=== PATIENT | female | born 1990 ===

== ENCOUNTER 2018-07-11 09:39 | Emergency (ER) | payer BC ==
[2018-07-11 09:51] VITALS: BP 112/77; PULSE 77; RESP 16; TEMP 98.2; O2SAT 99
--- NOTE | 2018-07-11 10:42 | ED PDOC ---
Arrival/HPI - General Historian: Patient - History of Present Illness Narrative History of Present Illness (Text): 07/11/18 10:43 28-year-old female presents today with a 2-week history of swelling to the left wrist. Patient denies any recent trauma or injury. Patient states she is noticed a small lump along the dorsal aspect of the left wrist. Patient states at times there is slight tenderness but the majority of the time she has no pain. She denies numbness weakness or tingling in the extremity. Denies decreased range of motion of the hand or wrist. No medications have been taken at home. Patient is refusing any medications at present time as she states she has no pain. <Mary Kay Choe - Last Filed: 07/11/18 19:39> <Moshe Garcia - Last Filed: 07/16/18 11:40> - General Chief Complaint: Finger,Hand,&Wrist Time Seen by Provider: 07/11/18 09:42 Past Medical History - Provider Review Nursing Documentation Reviewed: Yes - Travel History Have you recently traveled outside [place] w/in the past 3 mons?: No - Psychiatric Hx Psychophysiologic Disorder: No Hx Substance Use: No - Surgical History Hx Section: Yes <Mary Kay Choe - Last Filed: 07/11/18 19:39> Family/Social History - Physician Review Nursing Documentation Reviewed: Yes Family/Social History: Unknown Family HX Smoking Status: Never Smoked Hx Alcohol Use: No Hx Substance Use: No <Mary Kay Choe - Last Filed: 07/11/18 19:39> Allergies/Home Meds <Mary Kay Choe - Last Filed: 07/11/18 19:39> <Moshe Garcia - Last Filed: 07/16/18 11:40> Allergies/Adverse Reactions: Allergies No Known Allergies Allergy (Verified 07/12/18 09:22) Home Medications: Home Meds Medication Instructions Recorded Confirmed No Known Home Med 07/11/18 07/11/18 Review of Systems - Review of Systems Constitutional: absent: Fatigue, Fevers Respiratory: absent: SOB, Cough Cardiovascular: absent: Chest Pain, Palpitations Gastrointestinal: absent: Abdominal Pain, Nausea, Vomiting Genitourinary Female: absent: Dysuria Musculoskeletal: Arthralgias. absent: Back Pain, Neck Pain Skin: Other (cyst) Neurological: absent: Headache Psychiatric: absent: Anxiety, Depression <Mary Kay Choe - Last Filed: 07/11/18 19:39> Physical Exam Vital Signs Reviewed: Yes Vital Signs Temp Pulse Resp BP Pulse Ox 07/11/18 09:48 98.2 F 77 16 112/77 99 Temperature: Afebrile Blood Pressure: Normal Pulse: Regular Respiratory Rate: Normal Appearance: Positive for: Well-Appearing, Non-Toxic, Comfortable Pain Distress: None Mental Status: Positive for: Alert and Oriented X 3 - Systems Exam Head: Present: Atraumatic Mouth: Present: Moist Mucous Membranes Respiratory/Chest: Present: Clear to Auscultation Cardiovascular: Present: Regular Rate and Rhythm Upper Extremity: Present: Normal ROM, NORMAL PULSES, Neurovascularly Intact, Capillary Refill < 2s, Other (left wrist; there is a small 1cm round non tender mass noted to the dorsal aspect of the wrist. no surrounding erythema; full rom of hand/wrist. sensation and distal pulses intact. cap refill <2. ). No: Tenderness, Erythema, Temperature Abnormalties Neurological: Present: GCS=15, Speech Normal Skin: Present: Warm, Dry, Normal Color Psychiatric: Present: Alert, Oriented x 3 <Mary Kay Choe - Last Filed: 07/11/18 19:39> Vital Signs Temp Pulse Resp BP Pulse Ox 07/11/18 09:48 98.2 F 77 16 112/77 99 <Moshe Garcia - Last Filed: 07/16/18 11:40> Medical Decision Making ED Course and Treatment: 07/11/18 10:48 28-year-old female found to have a ganglion cyst on the dorsal aspect of the left wrist. Nontender. No erythema. I discussed ganglion cyst in depth with the patient. I have advised the patient to follow-up with the surgeon/orthopedist/hand specialist within the next 2 days. I advised the patient to return if symptoms worsen persist or if new concerning symptoms develop patient verbalizes understanding of discharge instructions and need for immediate followup. IMpression: Ganglion cyst Tylenol every 4 hours as needed for pain Follow-up with the surgeon within the next 2 days Follow-up with the orthopedist within the next 2 days Follow-up with a primary care physician within the next 2 days Return if symptoms worsen persist or if new concerning symptoms develop <Mary Kay Choe - Last Filed: 07/11/18 19:39> - PA / [employer]ER / Resident Statement MD/DO has reviewed & agrees with the documentation as recorded. <Moshe Garcia - Last Filed: 07/16/18 11:40> Disposition/Present on Arrival - Present on Arrival Any Indicators Present on Arrival: No History of DVT/PE: No History of Uncontrolled Diabetes: No Urinary Catheter: No History of Decub. Ulcer: No History Surgical Site Infection Following: None - Disposition Have Diagnosis and Disposition been Completed?: Yes Disposition Time: 10:41 <Mary Kay Choe - Last Filed: 07/11/18 19:39> <Moshe Garcia - Last Filed: 07/16/18 11:40> - Disposition Diagnosis: Ganglion cyst Disposition: HOME/ ROUTINE Condition: GOOD Discharge Instructions (ExitCare): Ganglion Cyst (DC) Print Language: KINYARWAN[place] Additional Instructions: Tylenol every 4 hours as needed for pain Follow-up with the surgeon within the next 2 days Follow-up with the orthopedist within the next 2 days Follow-up with a primary care physician within the next 2 days Return if symptoms worsen persist or if new concerning symptoms develop Referrals: Yesika Cope MD [Staff Provider] - Follow up with primary Wallace Carrillo MD [Staff Provider] - Follow up with primary Issa Arrington MD [Staff Provider] - Follow up with primary [facility] [Outside] - [place] up [place] [facility] [place] - Follow up with primary Forms: [employer] (Micronesian), WORK NOTE
== END 2018-07-11 11:15 | disposition home or self-care (01) ==
LOC: ED 09:39 → MERGE 09:39 → ED 11:15
DX: M67.432 Ganglion, left wrist (principal)